=== PATIENT | male | born 1990 | race Caucasian/White ===

== ENCOUNTER 2018-10-03 19:50 | Emergency (ER) | payer SELFPAY ==
[~2018-10-03] VITALS: Ht 170.2 cm; Wt 68.5 kg
[2018-10-03 20:02] VITALS: Ht 170.2 cm; Wt 68.5 kg
[2018-10-03 20:32] VITALS: BP 116/76
== END 2018-10-03 20:32 | disposition home or self-care (01) ==
LOC: ED 19:50
DX: F41.9 Anxiety disorder, unspecified (principal); Z76.0 Encounter for issue of repeat prescription; F13.20 Sedative, hypnotic or anxiolytic dependence, uncomplicated